=== PATIENT | female | born 1945 | race Caucasian/White ===

== ENCOUNTER 2017-06-17 11:02 | Outpatient (CLI) | payer MEDICARE, OTHER ==
--- NOTE | 2017-06-17 16:11 | RAD ---
LEFT FOOT THREE VIEWS: Date: 06-17-17 FINDINGS: Foot films confirm that there is in fact a fracture at the base of the fifth metatarsal that is nondi splaced. The remainder of the foot appeared intact. A large calcaneal spur was seen. IMPRESSION: Fracture at the base of the fifth metatarsal. POS: HOME
--- NOTE | 2017-06-18 07:39 | RAD ---
LEFT ANKLE THREE VIEWS: Date: 06-17-17 FINDINGS: Mild soft tissue swelling is seen laterally. No underlying fracture or other acute bony change was no wade. The joint itself appears normal. A large calcaneal spur is present. The lateral view, however, suggests a fracture at the base of the fifth metatarsal. It is difficult t o see on the other views. IMPRESSION: 1. Lateral swelling. 2. Hairline fracture at the base of the fifth metatarsal. Code T POS: HOME
== END 2017-06-17 11:03 | disposition home or self-care (01) ==
LOC: BURRAD 11:02
PROVIDERS: ATTEND Family Medicine
DX: M25.572 Pain in left ankle and joints of left foot (principal); M79.672 Pain in left foot; M79.89 Other specified soft tissue disorders; S92.352A Displaced fracture of fifth metatarsal bone, left foot, initial encounter for closed fracture

== ENCOUNTER 2019-07-09 22:26 | Emergency (ER) | payer MEDICARE, OTHER ==
--- NOTE | 2019-07-09 23:14 | RAD ---
4 views left knee: 07/09/2019 COMPARISON: None HISTORY: Injury, trauma, pain FINDINGS: There is a large knee joint effusion. There is posterior patellar osteophyte formation. No dislocation. A comminuted mildly displaced lateral tibial plateau fracture is suspected. Recommend orthopedic consultation. IMPRESSION: Large knee joint effusion with findings suspicious for a comminuted and mildly depressed right lateral tibial plateau fracture.
[2019-07-09] MEDS ORDERED: HYDROcodone/Acetaminophen 10/325 mg Tablet ONE (23:29)
== END 2019-07-09 23:55 | disposition home or self-care (01) ==
LOC: BURERS 22:26
DX: S82.141A Displaced bicondylar fracture of right tibia, initial encounter for closed fracture (principal); E11.9 Type 2 diabetes mellitus without complications; E78.5 Hyperlipidemia, unspecified; I10 Essential (primary) hypertension; W11.XXXA Fall on and from ladder, initial encounter

== ENCOUNTER 2025-05-15 15:46 | Outpatient (CLI) | payer MEDICARE | END 2025-05-15 15:47 | disposition home or self-care (01) | LOC: BURRAD 15:46 | PROVIDERS: ATTEND Family Medicine | DX: M25.511 Pain in right shoulder (principal); M25.512 Pain in left shoulder; G89.29 Other chronic pain; M19.012 Primary osteoarthritis, left shoulder; M19.011 Primary osteoarthritis, right shoulder ==